=== PATIENT | male | born 2000 | race Caucasian/White ===

== ENCOUNTER 2021-12-30 10:58 | Emergency (ER) | payer SELFPAY ==
[2021-12-30] MEDS ORDERED: Acetaminophen/oxyCODONE 325-5 MG Tab PO ONE (11:22)
[2021-12-30] MEDS ORDERED: Ibuprofen 600 MG Tab PO ONE (11:28)
== END 2021-12-30 14:52 | disposition home or self-care (01) ==
LOC: MW.ED 10:58
DX: S30.22XA Contusion of scrotum and testes, initial encounter (principal); W22.09XA Striking against other stationary object, initial encounter
CPT/HCPCS: 76870; 93976; 99284; A9270; 99283

== ENCOUNTER 2023-10-28 19:48 | Emergency (ER) | payer BC, OTHER ==
[2023-10-28] MEDS ORDERED: Ibuprofen 600 MG Tab PO ONE (20:05)
[2023-10-28 20:47] LABS: CORONAVIRUS COVID-19 NAA NEGATIVE (NEGATIVE); INFLUENZA A NAA NEGATIVE (NEGATIVE); INFLUENZA B NAA NEGATIVE (NEGATIVE); RESPIRATORY SYNCYTIAL VIR NAA NEGATIVE (NEGATIVE)
== END 2023-10-28 21:39 | disposition home or self-care (01) ==
LOC: MW.ED 19:48
DX: J18.9 Pneumonia, unspecified organism (principal); Z20.822 Contact with and (suspected) exposure to COVID-19
CPT/HCPCS: 0241U; 71045; 99285; A9270

== ENCOUNTER 2024-02-03 06:00 | Emergency (ER) | payer SELFPAY ==
[2024-02-03] MEDS: Albuterol/Ipratropium 3.0-0.5 MG/3 ML Neb Soln NEB ONE (06:15)
[2024-02-03 06:22] LABS: BASOPHILS ABSOLUTE AUTO 0.05 K/uL (0.00-0.20); BASOPHILS PERCENT AUTO 0.4 % (0.0-1.0); EOSINOPHILS ABSOLUTE AUTO 0.17 K/uL (0.00-0.45); EOSINOPHILS PERCENT AUTO 1.3 % (0.0-6.0); HEMATOCRIT 53.7 % (42.0-52.0); HEMOGLOBIN 18.3 g/dL (14.0-18.0); IMMATURE GRAN ABSOLUTE AUTO 0.05 K/uL (0.00-0.05); IMMATURE GRAN PERCENT AUTO 0.4 % (0.0-0.4); LYMPHOCYTES ABSOLUTE AUTO 1.17 K/uL (1.00-4.80); LYMPHOCYTES PERCENT AUTO 8.9 % (24.0-44.0); MEAN CORPUSCULAR HEMOGLOBIN 29.3 pg (28.0-32.0); MEAN CORPUSCULAR HGB CONC 34.1 g/dL (32.0-36.0); MEAN CORPUSCULAR VOLUME 85.9 fL (83.0-99.0); MEAN PLATELET VOLUME 9.6 fL (9.4-12.4); MONOCYTES ABSOLUTE AUTO 1.04 K/uL (0.00-0.80); MONOCYTES PERCENT AUTO 7.9 % (0.0-8.0); NEUTROPHILS ABSOLUTE AUTO 10.71 K/uL (1.80-7.70); NEUTROPHILS PERCENT AUTO 81.1 % (41.0-71.0); PLATELET COUNT,PLT 274 K/uL (150-400); RED BLOOD CELL COUNT 6.25 M/uL (4.52-5.90); WHITE BLOOD CELL COUNT,WBC 13.19 K/uL (3.9-11.3)
[2024-02-03 06:24] LABS: BASE EXCESS VENOUS 3.5 (-2.0-3.0); BICARBONATE,VENOUS 30 mEQ/mL (22-28); PCO2 VENOUS 48 mmHG (41-51)
[2024-02-03 06:29] LABS: PO2 VENOUS < 30 mmHG (80-100)
[2024-02-03] MEDS: cefTRIAXone 1 GM in Sodium Chloride 0.9% 50 ML IV ONE (06:31)
[2024-02-03] MEDS: Sodium Chloride 0.9% 2.5 ML Syringe FLUSH PRN (06:32)
[2024-02-03] MEDS: Sodium Chloride 0.9% 10 ML Syringe FLUSH PRN (06:32)
[2024-02-03] MEDS: Sodium Chloride 0.9% 1,000 ML IV ONE (06:49)
[2024-02-03] MEDS: Albuterol 0.083% 2.5 MG/3 ML Neb Soln NEB ONE (06:49)
[2024-02-03 06:52] LABS: LACTIC ACID 1.2 mmol/L (0.4-2.0)
[2024-02-03 06:54] LABS: A/G RATIO 0.9 (0.9-1.6); ALBUMIN 3.4 g/dL (3.4-5.0); BILIRUBIN TOTAL 0.6 mg/dL (0.2-1.0); CALCIUM 9.4 mg/dL (8.5-10.1); CARBON DIOXIDE,CO2 28.5 mmol/L (21.0-32.0); CREATININE 1.1 mg/dL (0.8-1.3); EST CRCL DRUG DOSING (CG) 112.68 mL/min; POTASSIUM,K 4.2 mmol/L (3.5-5.1); PROTEIN TOTAL,TP 7.3 g/dL (6.4-8.2)
[2024-02-03 07:08] LABS: CORONAVIRUS COVID-19 NAA NEGATIVE (NEGATIVE); INFLUENZA A NAA NEGATIVE (NEGATIVE); INFLUENZA B NAA NEGATIVE (NEGATIVE)
== END 2024-02-03 08:30 | disposition home or self-care (01) ==
LOC: MW.ED 06:00
DX: J06.9 Acute upper respiratory infection, unspecified (principal); Z79.899 Other long term (current) drug therapy; Z79.51 Long term (current) use of inhaled steroids
CPT/HCPCS: 0240U; 36415; 71045; 80053; 82803; 83605; 83690; 84484; 85025; 85379; 87040; 93005; 96361; 96365; 99285; J0696; J3490; J7030; J7620-GY

== ENCOUNTER 2024-04-12 13:29 | Emergency (ER) | payer SELFPAY ==
[2024-04-12] MEDS: Sodium Chloride 0.9% 1,000 ML IV STA ×2 (14:44→15:37)
== END 2024-04-12 16:22 | disposition home or self-care (01) ==
LOC: MW.ED 13:29
DX: E86.0 Dehydration (principal); R74.8 Abnormal levels of other serum enzymes; F17.210 Nicotine dependence, cigarettes, uncomplicated; Z75.8 Other problems related to medical facilities and other health care
CPT/HCPCS: 96360; 96361; 99283; J7030

== ENCOUNTER 2024-07-04 22:55 | Emergency (ER) | payer BC ==
[2024-07-04] MEDS ORDERED: Morphine 4 MG/ML Syringe IVPUSH ONE (23:38)
[2024-07-04] MEDS ORDERED: Sodium Chloride 0.9% 2.5 ML Syringe FLUSH PRN (23:38)
[2024-07-04] MEDS ORDERED: Sodium Chloride 0.9% 10 ML Syringe FLUSH PRN (23:38)
== END 2024-07-05 00:06 | disposition left against medical advice (07) ==
LOC: MW.ED 22:55
DX: K64.5 Perianal venous thrombosis (principal); Z75.8 Other problems related to medical facilities and other health care
CPT/HCPCS: 36415; 99283

== ENCOUNTER 2025-04-25 20:39 | Emergency (ER) | payer SELFPAY | END 2025-04-25 22:31 | disposition home or self-care (01) | LOC: MW.ED 20:39 | DX: S80.11XA Contusion of right lower leg, initial encounter (principal); X58.XXXA Exposure to other specified factors, initial encounter | CPT/HCPCS: 73590-26-RT; 73590-RT; 99283 ==